=== PATIENT | female | born 1950 | race African-American/Black ===

== ENCOUNTER 2017-02-19 14:50 | Emergency (ER) | payer OTHER, BC ==
[~2017-02-19] VITALS: Ht 157.5 cm; Wt 107.5 kg
[~2017-02-19 14:50] MED LIST: ACYCLOVIR 400400 MG PO; DIOVAN 80 MG TA80 M1 PO; IBUPROFEN 800800 MG PO; LEXAPRO5 MG PO; NORCO 5-325 TA1 EACH PO; PREDNISONE50 MG PO; PROAIR HFA8.5 GM IH; PROMETHAZINE-C120 ML PO; TRAMADOL 50 MG50 MG PO; ZPAK PO
[2017-02-19] MEDS ORDERED: CENTRUM SILVER1 EAC4 PO (14:59)
[2017-02-19] MEDS ORDERED: BREO ELLIPTA 11 EACH IH (14:59)
[2017-02-19] MEDS ORDERED: MEDROLDOSEPACK PO (15:19)
[2017-02-19] MEDS ORDERED: NAPROSYN500 MG PO (15:19)
[2017-02-19] MEDS ORDERED: TIZANIDINE HCL4 MG PO (15:19)
[2017-02-19 16:18] VITALS: BP 120/82
== END 2017-02-19 16:18 | disposition home or self-care (01) ==
LOC: ER 14:50
DX: M54.42 Lumbago with sciatica, left side (principal); I10 Essential (primary) hypertension; F17.210 Nicotine dependence, cigarettes, uncomplicated; Z88.5 Allergy status to narcotic agent

== ENCOUNTER → 2017-03-24 | Outpatient (CLI) | payer OTHER, BC ==
[~2017-03-24] VITALS: Ht 157.5 cm; Wt 108.9 kg
[~2017-03-24] MED LIST changes: +ALVESCO6.1 GM INH; +BELVIQ10 MG PO; +BREO ELLIPTA 11 EACH IH; +CENTRUM SILVER1 EAC4 PO; +LIPITOR10 MG PO; +MEDROLDOSEPACK PO; +NAPROSYN500 MG PO; +NEURONTIN300 MG PO; +OMEPRAZOLE40 MG PO; +TIZANIDINE HCL4 MG PO; +TOPROL XL25 MG PO; +VALTREX1000 MG PO
--- NOTE | ~2017-03-24 | HPC ---
[facility] [place] [address] PAIN MANAGEMENT CONSULTATION Name: YANELY CISNEROSXAVIER Room #: REG [facility] [employer]rett[employer]uca[employer]ai.#: [id number] Admission: 03/24/17 Attend Phys: Suri Cadena MD Discharge: Date of : 46 Report #: [id number] THIS REPORT FOR: //name// CC: SOSA Cadena DATE OF SERVICE: 03/24/2017 FOLLOWUP COMPLAINT: Pain down in my leg with numbness, weakness, tenderness. FOLLOWUP HISTORY: The patient is a 66-year-old female, who has been referred to the pain clinic for evaluation of leg pain. She has noticed the onset of this discomfort in early January. She describes the pain in her right upper leg and radiates down into her right hip. Standing makes it worse. Walking is problematic, sitting is uncomfortable, pain is better if she lies on her left side and takes pain pills. She describes it as continuous, steady, constant, periodic, burning, shooting, sharp and stabbing. She rates it as a 9/10 today. She is almost unable to bear weight and walk. She states that she takes care of her, dependence of mother. She is bearly able to get up and get around to help with her mother's care. She denies any surgeries. ALLERGIES: OXYCODONE, LOSARTAN. MEDICATIONS: Ibuprofen 800 mg 1 p.o. q. 8 hours p.r.n., albuterol sulfate 2 puffs q. 4-6 hours, Diovan 80 mg p.o. daily, multivitamin, fluticasone/vilanterol daily. PAST MEDICAL HISTORY: Hypertension, hyperlipidemia, depression, osteoarthritis, COPD/emphysema, hiatal hernia, history of thyroid nodule. PAST SURGICAL HISTORY: Bladder suspension 1997, total knee replacement right 2007, total knee replacement, left 2004. SOCIAL HISTORY: She is retired, has been retired for 4 years, takes care of her mother, who has Alzheimer's. Spouse at age 59 of cancer. FAMILY HISTORY: Cancer, heart disease, hypertension, thyroid disease, tuberculosis. SOCIAL HISTORY: Smokes cigarettes and is trying to stop. Smokes 1 pack per day for 20 years. Denies use of illicit drugs. Denies use of alcohol on a regular basis. REVIEW OF SYSTEMS: Questionnaire in the chart indicates 14-point review showing generally good health, fatigue, weakness, wears glasses, hearing loss, shortness [address] [address] PAIN MANAGEMENT CONSULTATION Name: XAVIER MOLINA Room #: REG CLI [facility]#: [id number] Admission: 03/24/17 Attend Phys: Suri Cadena MD Discharge: Date of : 46 Report #: [id number] breath, asthma/wheezing, depression, anemia. LABORATORY DATA: No laboratories are available at the time of our interview. PHYSICAL EXAMINATION: Blood pressure 165/85, pulse 87, saturations 100%. The patient walks with a very antalgic gait favoring her right leg. Height 5 feet 2 inches, weight 108 kilograms. BMI is 43. Has straight leg raise positive on the right. Notes decreased sensation to touch in the posterior portion of her right leg with pain radiating down into the calf. Describes as shooting, sharp pain radiating down the posterior portion of her leg in the L5-S1 distribution. IMPRESSION: Lumbar radiculopathy involving the right L5-S1 distribution. RECOMMENDATIONS: We discussed treatment options with the patient. Risks and benefits of an epidural steroid injection were discussed. Possible complications were reviewed. The patient elects to proceed. Risks and benefits of the procedure, which include but are not limited to increased pain, no improvement in pain, bleeding, headache, muscle soreness, nerve damage were explained and the patient elects to proceed. PROCEDURE NOTE: The patient was placed in the prone position. Fluoroscopy was used to identify the right L5-S1 nerve area. This area was sterilely prepped with Betadine. 0.25% bupivacaine was infiltrated. A #17-gauge Tuohy with loss of resistance technique was used to gain access to the epidural space. There was no CSF, heme or paresthesia. A total of 80 mg Depo-Medrol, 40 mg triamcinolone and 3 mL of 0.25% bupivacaine was injected. The patient's pain decreased from 9-0 at the time of discharge. She will follow up in the future. We would like to thank you for letting us participate in her care. We hope she continues to improve. <ELECTRONICALLY SIGNED> By: Suri Cadena MD 04/01/17 0815 0831 1302 Suri Cadena MD /cathy
[2017-03-24 15:35] VITALS: BP 148/103
== END ==
LOC: PAIN 14:13
DX: M54.16 Radiculopathy, lumbar region (principal); F17.210 Nicotine dependence, cigarettes, uncomplicated; I10 Essential (primary) hypertension; E78.5 Hyperlipidemia, unspecified; F32.9 Major depressive disorder, single episode, unspecified; J43.9 Emphysema, unspecified; Z96.653 Presence of artificial knee joint, bilateral; Z80.9 Family history of malignant neoplasm, unspecified

== ENCOUNTER → 2017-04-07 | Outpatient (CLI) | payer OTHER, BC ==
[~2017-04-07] VITALS: Ht 157.5 cm; Wt 107.9 kg
[~2017-04-07] MED LIST changes: +VALSARTAN-HCTZ1 EACH PO; +ZANAFLEX4 MG PO
--- NOTE | ~2017-04-07 | HPC ---
[facility] [place] [address] PAIN MANAGEMENT CONSULTATION Name: YANELY CISNEROSXAVIER Room #: REG [facility] [employer]rett[employer]uca[employer]ai.#: [id number] Admission: 04/07/17 Attend Phys: Suri Cadena MD Discharge: Date of : 46 Report #: [id number] THIS REPORT FOR: //name// CC: Jaycee Cadena DATE OF SERVICE: 04/07/2017 DATE OF SERVICE: 04/07/2017. PRIMARY CARE PHYSICIAN: Jaycee Sharp MD FOLLOWUP COMPLAINT: The pain improved after the injection, but I am still having some pain down the side of my leg, and I did have some in my calf. FOLLOWUP HISTORY: The patient is a 66-year-old female who has been referred to the pain clinic for evaluation of lumbar radicular pain. She underwent an epidural steroid injection at the last visit. She noted improvement. As you recall, she takes care of her invalid mother. She has been getting help now. She has a nursing surgical services director type person who comes in to help with moving her mother and taking care of her. She has had no complications from the procedure. Overall, she feels that things have improved. She has increased her ability to engage in activities of daily living. She does note some pain and discomfort after standing, walking and sometimes with sitting. Notes that her pain improves when she lies on her left side. Pain medications are helpful as well. She is having less of the shooting, sharp, stabbing and constant pain. PHYSICAL EXAMINATION: VITAL SIGNS: Blood pressure is 122/84, pulse 69, respiratory rate 16, and room air saturation is 100%. Height 5 feet 2 inches, weight 107 kg, BMI is 43. NEUROLOGIC: The patient has pain and discomfort radiating down the posterior portion of her right leg in the L5-S1 distribution. IMPRESSION: Lumbar radiculopathy, improved after the last L5-S1 epidural steroid injection by greater than 50%. RECOMMENDATIONS: We discussed treatment options with the patient. Risks and benefits of another epidural steroid injection were again reviewed. Possible complications which could include but are not limited to infection, increased muscle soreness, headaches, paresis, bleeding. PROCEDURE NOTE: The patient was placed in the prone position. The L5-S1 area was sterilely prepped. Then, 0.25% bupivacaine was infiltrated into this area. A 17-gauge Tuohy with loss of resistance technique was used to gain access to the epidural space. There was no CSF, heme or paresthesia. Total of [address] [address] PAIN MANAGEMENT CONSULTATION Name: YANELY CISNEROSXAVIER Room #: REG [facility]#: [id number] Admission: 04/07/17 Attend Phys: Suri Cadena MD Discharge: Date of : 46 Report #: [id number] Depo-Medrol, 40 mg triamcinolone and 2 mL of 0.25% bupivacaine was injected. The patient's pain decreased to 3 at the time of discharge. PLAN: She will follow up in the future if needed. We would like to thank you for letting us participate in her care. We hope she continues to improve. By: 1118 [id number] Suri Cadena MD /nt
[2017-04-07 09:11] VITALS: BP 122/84
== END ==
LOC: PAIN 06:08
DX: M54.16 Radiculopathy, lumbar region (principal); I10 Essential (primary) hypertension; F17.210 Nicotine dependence, cigarettes, uncomplicated; F32.9 Major depressive disorder, single episode, unspecified

== ENCOUNTER → 2017-05-14 | Outpatient (CLI) | payer OTHER, BC ==
[~2017-05-14] VITALS: Ht 157.5 cm; Wt 112.2 kg
[2017-05-14 09:09] VITALS: BP 151/91
== END | disposition home or self-care (01) ==
LOC: PAIN 06:53
DX: M54.16 Radiculopathy, lumbar region (principal)

== ENCOUNTER → 2017-06-15 | Outpatient (CLI) | payer OTHER, BC | LOC: CAT 09:17 | DX: J98.11 Atelectasis (principal); R91.1 Solitary pulmonary nodule ==

== ENCOUNTER 2017-12-09 05:20 | Inpatient (IN) | payer OTHER, BC ==
[~2017-12-09] VITALS: Ht 157.5 cm; Wt 106.1 kg
--- NOTE | ~2017-12-09 | O ---
[facility] [place] [place] [address] OPERATIVE REPORT Name: XAVIER MOLINA Room #: 436-P [facility] IN M.R.#: [id number] Admission: 12/09/17 Attend Phys: Yfn Esposito MD, F Discharge: Date of : 46 Report #: [id number] THIS REPORT FOR: //name// CC: Jaycee Esposito DATE OF SERVICE: 12/09/2017 SURGEON: Yfn Esposito MD ELECTRICIAN: Laureano Patiño MD PREOPERATIVE DIAGNOSES: 1. Morbid obesity. 2. Hypertension. 3. Chronic obstructive pulmonary disease POSTOPERATIVE DIAGNOSES: 1. Morbid obesity. 2. Paraesophageal hernia. 3. Hypertension. 4. Chronic obstructive pulmonary disease. PROCEDURE: 1. Laparoscopic sleeve gastrectomy with EGD. 2. Laparoscopic suture repair of paraesophageal hernia. ANESTHESIA: General endotracheal anesthesia and local anesthetic. ESTIMATED BLOOD LOSS: 5 mL SPECIMEN: Lateral stomach. COMPLICATIONS: None appreciated. INDICATIONS FOR PROCEDURE: This is a 67-year-old female, patient of Dr. Jaycee Sharp who stands 5 feet 2 inches, weighing 239 pounds at her last office visit with a BMI of 43.7. She has had difficulty with her weight since early adulthood. Most of her issues have been secondary to an inability to exercise with chronic knee and lower extremity arthritis/pain. The patient has tried numerous weight loss programs and plans with limited weight loss success, including specialized diets and phentermine. She has numerous weight-associated comorbid conditions and complaints. She has been cleared from a multidisciplinary standpoint for bariatric surgery. She presents today for laparoscopic sleeve gastrectomy with EGD. [facility] [address] [place] [address] OPERATIVE REPORT Name: YANELY CISNEROSXAVIER Room #: 436-P [facility] IN ..#: [id number] Admission: 12/09/17 Attend Phys: Yfn Esposito MD, F Discharge: Date of : 46 Report #: [id number] OPERATIVE FINDINGS: On EGD, the patient had a possible hiatal hernia seen on retroflexion of the scope. The EGD was otherwise normal with the stomach and duodenum showing no polyps, diverticula, masses, or ulcers. Laparoscopically, the patient was seen to have a paraesophageal hernia with a portion of her stomach and omentum extending up into the hiatus. The liver, small bowel and colon in the surrounding area appeared otherwise normal. The gastric sleeve staple line was located 4 cm lateral/proximal to the pylorus, 3 cm lateral to the incisura, and 1 cm lateral to the GE junction after repairing the paraesophageal hernia with a suture. There is no evidence for staple line leak. Immediately after applying Tisseel to the gastric sleeve staple line, the gastroscope was used to gently insufflate air into the sleeve. No air bubbles were seen forming within the Tisseel, indicative of a negative leak test. There was no endoluminal bleeding and the lumen was smooth and contoured. The excised stomach held 750 mL of fluid. No other significant intra-abdominal pathology was seen. At the conclusion of the operation, sponge, needle, and instrument counts were correct. DESCRIPTION OF PROCEDURE IN DETAIL: After the risks, benefits, and expectations of the operation were discussed in detail with the patient, informed consent was obtained. The patient was identified in the preoperative holding area. The patient was given IV antibiotics as documented in the chart [facility]. The patient was then taken to the operating room and she was placed in the supine position. SCDs were placed on the patient's bilateral lower extremities and pneumatic compression was initiated. The patient was then given IV sedation and she was intubated without incident. A bite block and orogastric tube were placed by Anesthesia. The patient was placed in the low lying dorsal lithotomy position in Yellofin stirrups on the beanbag. She was secured to the table. A timeout was performed to identify the correct patient and procedure. EGD was performed first. The gastroscope was inserted into the patient's oropharynx and passed down the esophagus into the stomach and beyond the pylorus to the third portion of the duodenum. The scope was then slowly withdrawn. With the scope withdrawn into the antrum of the stomach, the scope was retroflexed and a retrograde view of the cardia was seen, whereby a possible hiatal hernia was seen. The scope was then straightened and slightly withdrawn. The patient's abdomen was prepped and draped in the standard sterile fashion. Local anesthetic was infiltrated into the skin and subcutaneous tissue in the left periumbilical area where a small transverse incision was made. A 5 mm Visiport was then placed intraperitoneally with a 0-degree angled laparoscope. Pneumoperitoneum was achieved with insufflation of carbon dioxide to 15 mmHg. A 30-degree angled laparoscope was inserted. A 15 mm port was placed in the right mid abdomen under direct visualization after local anesthetic was infiltrated into the skin and subcutaneous tissue and an appropriately sized incision was made. Additional 5 mm ports were placed in the left mid and left lateral [address] [address] OPERATIVE REPORT Name: XAVIER MOLINA Room #: 436-P [facility] IN M.R.#: [id number] Admission: 12/09/17 Attend Phys: Yfn Esposito MD, F Discharge: Date of : 46 Report #: [id number] abdomen using the same technique. Local anesthetic was then infiltrated into the subxiphoid area where a small transverse incision was made and the 5 mm port obturator was used to penetrate the fascia. This created a passageway for the Syeda liver retractor. After placement of the retractor, the hiatal hernia was visualized. The left mid abdominal 5 mm port was then upsized to a 12 mm port after widening the incision. The patient was placed in the reverse Trendelenburg position. The gastrosplenic ligament with short gastric vessels were then divided with the ultrasonic dissector with good hemostasis up to the level of the left saravanan. Dissection was carried out along the left saravanan to further delineate the hiatal hernia. The phreno-esophageal was opened with the ultrasonic dissector as well to fully expose both the left and right saravanan. Dissection was carried into the mediastinum. The omentum and the stomach that were located within the hernia were completely reduced. The EndoStitch device was then used to primarily repair the hiatal hernia with a single suture of 0 Surgidac. There was good approximation of the defect with no impingement upon the esophagus that had been reduced into the abdominal cavity. Dissection continued along the greater curvature of the stomach, dividing the gastrocolic ligament with the ultrasound dissector with good hemostasis. Dissection was carried to an area that was 4 cm proximal to the pylorus. The stomach was then rotated medially and all posterior attachments were carefully taken down with the ultrasonic dissector. The orogastric tube was removed by Anesthesia under my direction. The gastroscope remained within the stomach and was positioned along the lesser curvature of the stomach by Anesthesia under my direction as well. The scope would serve as a 34-Turkish bougie. The gastric sleeve was then created in a distal to proximal fashion using the powered 65 mm SHAYLEE stapler with all loads buttressed with Mariah-Strips. The initial 2 firings, which started at the area 4 cm lateral to the pylorus, were with black loads; the remaining loads were green loads up to the stomach near the GE junction. The stomach was then transected and removed through the 15 mm port site. An 0 PDS suture was placed with the Evan-Chicho laparoscopic fascial closure device. The suture was tagged and the port was replaced. The leak test was performed next. 10 mL of Tisseel was applied to the gastric sleeve staple line with the Playdom aerosolizer. Immediately after applying the Tisseel, the gastroscope was used to gently insufflate air into the sleeve and no air bubbles were seen forming within the Tisseel. The scope was slowly withdrawn. An additional 0 PDS suture was used to close the 12 mm port site fascial opening in the left mid abdomen. This was done so under direct visualization with a Evan-Chicho laparoscopic fascial closure device. The Syeda liver retractor was then removed under direct visualization. The abdominal cavity was desufflated and the remaining ports were removed. Interrupted subcuticular 4-0 Monocryl sutures and Dermabond were used to close the skin incisions. The patient tolerated the procedure well. She was [address] [address] OPERATIVE REPORT Name: [place] XAVIER CISNEROS Room #: 436-P [facility] IN M.R.#: [id number] Admission: 12/09/17 Attend Phys: Yfn Esposito MD, F Discharge: Date of : 46 Report #: [id number] awakened, extubated, and taken to recovery room in stable condition with no apparent intraoperative complications. <ELECTRONICALLY SIGNED> By: Yfn Esposito MD, FACS 12/09/17 1650 1000 1116 Yfn Esposito MD, FACS /nt
--- NOTE | ~2017-12-09 | S ---
[facility] [address] [place] [address] SURGICAL PATH RPT PROCEDURE Name: XAVIER MOLINA Room #: 436-P [facility] IN M.R.#: [id number] Admission: 12/09/17 Date of : 46 Discharge: 12/10/17 Report #: [id number] Path Case #: [id number] PATHOLOGY REPORT COLLECTION DATE: 12/09/2017 RECEIVED DATE: 12/09/2017 SUBMITTING PHYS: Dr. Yfn Esposito OTHER PHYS: Dr. 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 - Negative for intestinal metaplasia or atrophy. (IUV:pit; 12/14/2017) Professional services performed by [facility] at [facility] [address] [place] [address] Technical services performed by [facility] at [address] [place] [address], [address] [place] [address]. ADDENDUM COMMENT: This addendum is issued subsequent to reviewing a well-controlled Helicobacter pylori immunohistochemical stain performed on block A1. It shows numerous organisms present. The originally rendered diagnosis refined as follows: ELECTRONICALLY SIGNED BY: Omaira Whitney M.D. DATE/TIME:12/14/2017 13:36 SPECIMEN(S) RECEIVED: A.Lateral stomach * * * * * * * * * * * * FINAL DIAGNOSIS: Partial sleeve gastrectomy: - Moderate chronic active gastritis. - Negative for intestinal metaplasia or atrophy. COMMENT: A Helicobacter pylori immunohistochemical stain is ordered on block A1 due to the histologic findings. The results of the stain will be reported in an addendum to follow. (IUV:mgr; 12/10/2017) PATHOLOGIST: Omaira Whitney M.D. [address] [address] SURGICAL PATH RPT PROCEDURE Name: XAVIER MOLINA Room #: 436-P [facility] IN M.R.#: [id number] Admission: 12/09/17 Date of : 46 Discharge: 12/10/17 Report #: [id number] Path Case #: [id number] REPORT ELECTRONICALLY SIGNED BY: Omaira Whitney M.D. DATE/TIME: 12/10/2017 12:10 * * * * * * * * * * * * GROSS PATHOLOGY: Received in formalin labeled "Nola Morrow, lateral stomach" is a partial gastrectomy specimen measuring 23.5 x 5.6 x 1.8 cm. The external surface is pink-romero and smooth, and the specimen is closed with a staple line measuring 22.5 cm in length. There is a previously made incision adjacent to the staple line measuring 4.6 cm. The staple line is removed and the specimen is opened to reveal pink romero grossly unremarkable mucosa without polyps or masses. Database Programmer Analyst sections are submitted in cassettes A1-A3. ([facility]; 12/09/2017) CLINICAL HISTORY: Morbid obesity. INITIAL CPT CODE(S): A; 32060, 00394, 75377 Professional services performed by [facility] at [facility] [address], [place] [address] Technical services performed by [facility] at [address] [place] [address], [address], [place] [address]. [facility] [address] [place] [address] PHONE: [phone] DIRECTOR: Yong Vick M.D. * * * END OF REPORT * * *
[~2017-12-09 05:20] MED LIST changes: +VITAMIN D1000 UNI1 PO
[2017-12-09 07:00] VITALS: BP 133/71
[2017-12-09 14:00] VITALS: BP 136/80
[2017-12-09 15:00] VITALS: BP 124/74
[2017-12-09 16:00] VITALS: BP 136/80
[2017-12-09 17:00] VITALS: BP 127/78
[2017-12-09 19:38] VITALS: BP 127/70
[2017-12-10 00:10] VITALS: BP 124/68
[2017-12-10 04:36] VITALS: BP 133/61
[2017-12-10 06:57] LABS: ABSOLUTE NEUTROPHILS 7.6 thou/uL (1.4-8.2); BASOPHILS 0.1 % (0.0-2.0); HEMATOCRIT 31.7 % (37.0-47.0); HEMOGLOBIN 10.5 gm/dL (12.0-15.0); LYMPHOCYTES 18.3 % (24.0-44.0); MCH 31.9 pg (26.0-34.0); MCHC 33.2 g/dL (28.0-37.0); MONOCYTES 7.9 % (1.0-8.0); PLATELET COUNT 209 thou/uL (150-400); POLYS 73.7 % (36.0-66.0); RDW 14.9 % (10.5-14.5); WBC 10.3 thou/uL (4.0-11.0)
[2017-12-10 07:10] LABS: CALCIUM 8.7 mg/dL (8.5-10.1); CREATININE 0.6 mg/dL (0.6-1.0); POTASSIUM 3.2 mmol/L (3.5-5.1)
[2017-12-10] MEDS ORDERED: LOPRESSOR25 PO (10:01)
[2017-12-10] MEDS ORDERED: HYDROCODONE-ACE15 ML PO (10:02)
[2017-12-10 13:49] VITALS: BP 133/61
== END 2017-12-10 14:28 | disposition home or self-care (01) | DRG 621 ==
LOC: EDSTATUS 05:20 → TBA 05:21 → 4S 05:21 → OR 10:45 → 4S 13:50 → ENTRNSPT 12-10 14:19 → EDTRNSPTSTS 12-10 14:23 → 4S 12-10 14:28
PROVIDERS: Surgery
DX: E66.01 Morbid (severe) obesity due to excess calories (principal); K44.9 Diaphragmatic hernia without obstruction or gangrene; J44.9 Chronic obstructive pulmonary disease, unspecified; I10 Essential (primary) hypertension; E78.5 Hyperlipidemia, unspecified; F17.210 Nicotine dependence, cigarettes, uncomplicated; Z96.659 Presence of unspecified artificial knee joint; M19.90 Unspecified osteoarthritis, unspecified site; R06.83 Snoring; Z68.41 Body mass index [BMI] 40.0-44.9, adult; Z88.6 Allergy status to analgesic agent; Z81.8 Family history of other mental and behavioral disorders
CPT/HCPCS: 10102; 50010; 50101; 50222; 50249; 50386; 50555; 50558; 50739; 50740; 50962; 51437; 52182; 52265; 53307; 53311; 54022; 54118; 55326; 56462; 56525; 56526; 57092; 62110; 62900; 70005

== ENCOUNTER 2017-12-22 11:59 | Emergency (ER) | payer OTHER, BC ==
[~2017-12-22] VITALS: Ht 157.5 cm; Wt 105.7 kg
--- NOTE | ~2017-12-22 | EKG ---
[place] [address] [email or web address] [email or web address] [address] ELECTROCARDIOGRAM REPORT Name: XAVIER MOLINA Room #: [facility]#: [id number] Admission: 12/22/17 Attend Phys: Discharge: 12/22/17 Date of : 46 Report #: [id number] THIS REPORT FOR: //name// [facility] ED Test Date: 2017-12-22 Test Time: 12:29:11 Pat Name: XAVIER CISNEROS Department: Room: Gender: F [employer] Hand: NASIM : 1950 Requested By: William Sanchez Order Number: [id number] MD: Aleksander Go Measurements Intervals [place] Rate: 63 P: 42 SD: 194 QRS: 1 QRSD: 97 T: -10 QT: 413 QTc: 423 Interpretive Statements Sinus rhythm Probable left atrial enlargement Anteroseptal infarct, age indeterminate Compared to ECG 05/16/2015 12:53:01 Anterior T wave abnormality is now present Electronically Signed On 12-23-2017 8:23:13 RETAIL SALESPERSON by Aleksander Go [email or web address] <ELECTRONICALLY SIGNED> By: Aleksander Go MD, [facility] 12/23/17 0823 1229 28 Aleksander Go MD, [facility] /EPI
[~2017-12-22 11:59] MED LIST changes: +HYDROCODONE-ACE15 ML PO; +LOPRESSOR25 PO
[2017-12-22 12:59] LABS: ABSOLUTE NEUTROPHILS 5.3 thou/uL (1.4-8.2); BASOPHILS 0.3 % (0.0-2.0); EOSINOPHILS 2.1 % (0.0-3.0); HEMATOCRIT 35.2 % (37.0-47.0); HEMOGLOBIN 11.6 gm/dL (12.0-15.0); LYMPHOCYTES 15.6 % (24.0-44.0); MCH 31.3 pg (26.0-34.0); MCV 94.7 fL (80.0-100.0); MONOCYTES 7.6 % (1.0-8.0); PLATELET COUNT 264 thou/uL (150-400); POLYS 74.4 % (36.0-66.0); RBC 3.71 mil/uL (4.20-5.00); RDW 15.2 % (10.5-14.5); WBC 7.2 thou/uL (4.0-11.0)
[2017-12-22 13:03] LABS: ANION GAP 13 mmol/L (7-16); BUN 6 mg/dL (7-18); CHLORIDE 104 mmol/L (98-107); CO2 23 mmol/L (21-32); CREATININE 0.6 mg/dL (0.6-1.0); GLUCOSE 93 mg/dL (74-106); POTASSIUM 3.1 mmol/L (3.5-5.1)
[2017-12-22 13:04] LABS: SODIUM 140 mmol/L (136-145)
[2017-12-22 13:11] LABS: ALBUMIN 2.8 g/dL (3.4-5.0); LIPASE 119 U/L (73-393); SGOT 22 U/L (15-37); SGPT 24 U/L (30-65); TOTAL BILIRUBIN 0.4 mg/dL (<0.1-1.0); TROPONIN-I < 0.04 ng/mL (<0.06)
[2017-12-22] MEDS ORDERED: ACETAMINOPHEN-1 EAC1 PO (13:55)
[2017-12-22 14:15] VITALS: BP 111/71
== END 2017-12-22 14:15 | disposition home or self-care (01) ==
LOC: ER 11:59
PROVIDERS: Emergency Medicine
DX: E87.6 Hypokalemia (principal); I10 Essential (primary) hypertension; J45.909 Unspecified asthma, uncomplicated; K21.9 Gastro-esophageal reflux disease without esophagitis; F17.210 Nicotine dependence, cigarettes, uncomplicated; Z88.5 Allergy status to narcotic agent; Z90.3 Acquired absence of stomach [part of]

== ENCOUNTER 2018-01-08 14:58 | Inpatient (IN) | payer OTHER, BC ==
[~2018-01-08] VITALS: Ht 152.4 cm; Wt 105.7 kg
--- NOTE | ~2018-01-08 | HC ---
[facility] [place] [address] CONSULTATION Name: YANELY CISNEROSXAVIER Room #: 408-P ADM IN M.R.#: [id number] Admission: 01/08/18 Attend Phys: Joan Dickson Discharge: Date of : 46 Report #: [id number] THIS REPORT FOR: //name// CC: [facility] Chart Joan Dickson GASTROINTESTINAL CONSULT HISTORY OF PRESENT ILLNESS: The patient began having productive cough, weakness and decreased p.o. intake over the course of the last several days. She had a gastric sleeve surgery done approximately 1 month ago. She reports difficulty swallowing more than a couple sips at a time and has had some bronchial complaints after swallowing. She has also incidentally had a CT and ultrasound confirmed a thyroid nodule which is a new diagnosis as well. Her medical history is well outlined in the chart, but includes knee replacements, bladder sling, colonoscopy, hypertension, asthma, gastroesophageal reflux, remote smoking history, gastric sleeve. Denies recreational or chronic drug use. Denies significant alcohol consumption. MEDICATIONS AT HOME: Ellipta, omeprazole, valsartan/hydrochlorothiazide, vitamin D, and Centrum. ALLERGIES: She is allergic to OXYCODONE. FAMILY HISTORY: Noncontributory. REVIEW OF SYSTEMS: Negative for weight loss. She does have weakness and fatigue. She denies head, eyes, ears, nose or throat complaints. Besides that mentioned above, she denies chest pain, chest palpitation, chest pressure, cough, shortness of breath, wheezing, genitourinary, musculoskeletal or neuropsychiatric complaints otherwise. PHYSICAL EXAMINATION: VITAL SIGNS: Afebrile, vital signs stable. HEENT: Nonicteric. NECK: No JVD, thyromegaly or bruits. CARDIOVASCULAR: Regular. LUNGS: Clear anteriorly. ABDOMEN: Soft, nondistended. EXTREMITIES: Deferred. NEUROLOGIC: Deferred. RECTAL: Deferred. LABORATORY DATA: Pertinent labs include white count 8.6, hemoglobin 13.7, platelet count 198. Serum chemistry notable for potassium 3, chloride 114, glucose 182, magnesium 1.7, TSH 0.012. [facility] [address] [place] [address] CONSULTATION Name: XAVIER MOLINA Room #: [facility] IN M.R.#: [id number] Admission: 01/08/18 Attend Phys: Joan Dickson Discharge: Date of : 46 Report #: [id number] IMAGING STUDIES: Reveal chest x-ray with possible right hilar mass. There is some infiltrate or atelectasis also inferiorly over the heart in lateral view. CT chest revealed large left lobe thyroid mass 2.2 x 2.2 cm, pulmonary changes most likely focal atelectasis and infiltrate in the medial right lung and then this enlarged thyroid mass and the thyroid neck ultrasound reveals a complex cystic and solid mass within the left lobe measuring 2.4 x 1.8 x 3.7 cm. Biopsy was suggested. ASSESSMENT AND PLAN: In summary, the patient presents with dysphagia, which may be related to the thyroid mass either from an obstructive standpoint or a neurologic deficit associated with cough from the recurrent laryngeal nerve. We will proceed with a swallow study to exclude proximal or oropharyngeal dysphagia. I also have ordered barium esophagram. At this point, I would treat her pneumonia with antibiotics and workup this thyroid nodule. Perhaps an upper endoscopy would be reasonable at some points, but her symptoms are highly suggestive of a more proximal source. Again, I appreciate the opportunity to participate in her care. <ELECTRONICALLY SIGNED> By: Unruly Sher MD 01/12/18 0919 1416 194 Albert Cadena MD /nt
--- NOTE | ~2018-01-08 | EKG ---
[place] [address] [facility] [place] [address] ELECTROCARDIOGRAM REPORT Name: XAVIER MOLINA Room #: 408-P ADM IN M.R.#: [id number] Admission: 01/08/18 Attend Phys: Joan Dickson Discharge: Date of : 46 Report #: [id number] THIS REPORT FOR: //name// [facility] Test Date: 2018-01-12 Test Time: 15:06:24 Pat Name: XAVIER [place] CISNEROS Department: Room: 408 P Gender: F Lens Dotter: Everett JARAMILLO : 1950 Requested By: Estevan Oscar Order Number: [id number] MD: Aleksander Go Measurements Intervals [place] Rate: 72 P: 44 NV: 183 QRS: 28 QRSD: 88 T: 26 QT: 372 QTc: 408 Interpretive Statements Sinus rhythm Poor septal R-wave progression Compared to ECG 12/22/2017 12:29:11 No significant changes Electronically Signed On 01-12-2018 16:17:55 NEW PATIENT ESCORT by Aleksander Go [email or web address] <ELECTRONICALLY SIGNED> By: Aleksander Go MD, [facility] 01/12/18 1617 1506 1506 Aleksander Go MD, [facility] /EPI
[~2018-01-08 14:58] MED LIST changes: +ACETAMINOPHEN-1 EAC1 PO
[2018-01-08 15:28] LABS: ABSOLUTE NEUTROPHILS 5.9 thou/uL (1.4-8.2); BASOPHILS 0.2 % (0.0-2.0); EOSINOPHILS 0.5 % (0.0-3.0); HEMATOCRIT 41.3 % (37.0-47.0); HEMOGLOBIN 13.7 gm/dL (12.0-15.0); LYMPHOCYTES 21.4 % (24.0-44.0); MCH 31.3 pg (26.0-34.0); MCHC 33.3 g/dL (28.0-37.0); MCV 94.1 fL (80.0-100.0); MONOCYTES 9.4 % (1.0-8.0); PLATELET COUNT 198 thou/uL (150-400); POLYS 68.5 % (36.0-66.0); RBC 4.38 mil/uL (4.20-5.00); RDW 15.6 % (10.5-14.5); WBC 8.6 thou/uL (4.0-11.0)
[2018-01-08 15:32] LABS: CALCIUM 10.1 mg/dL (8.5-10.1); CREATININE 0.8 mg/dL (0.6-1.0)
[2018-01-08 15:34] LABS: POTASSIUM 2.8 mmol/L (3.5-5.1)
[2018-01-08] MEDS ORDERED: POTASSIUM20 PO (15:49)
[2018-01-08] MEDS ORDERED: PROAIR HFA8.5 GM INH ×3 (15:49→16:07)
[2018-01-08] MEDS ORDERED: POTASSIUM20 MEQ/15 PO ×3 (16:05→16:07)
[2018-01-08 17:42] VITALS: BP 142/75
[2018-01-08 18:05] VITALS: BP 142/75
[2018-01-08 18:30] VITALS: BP 137/83
[2018-01-08 21:27] VITALS: BP 136/81
[2018-01-09 00:21] VITALS: BP 135/83
[2018-01-09 05:36] VITALS: BP 141/83
[2018-01-09 09:42] VITALS: BP 148/88
[2018-01-09 11:07] LABS: HEMATOCRIT 36.1 % (37.0-47.0); HEMOGLOBIN 11.9 gm/dL (12.0-15.0); MCV 93.8 fL (80.0-100.0); RBC 3.84 mil/uL (4.20-5.00); RDW 15.7 % (10.5-14.5); WBC 5.7 thou/uL (4.0-11.0)
[2018-01-09 11:17] LABS: CALCIUM 9.4 mg/dL (8.5-10.1); CREATININE 0.7 mg/dL (0.6-1.0); MAGNESIUM 1.7 mg/dL (1.8-2.4)
[2018-01-09 17:17] VITALS: BP 123/68
[2018-01-09 17:56] VITALS: BP 141/77
[2018-01-09 20:00] VITALS: BP 135/64
[2018-01-10] VITALS: BP 131/76
[2018-01-10 01:56] LABS: URINE BILIRUBIN 1+ (Negative); URINE BLOOD 1+ (Negative); URINE COLOR YELLOW; URINE GLUCOSE-RANDOM* NEGATIVE (Negative); URINE KETONES TRACE (Negative); URINE LEUKOCYTES 1+ (Negative); URINE NITRITE POSITIVE (Negative); URINE PROTEIN (DIPSTICK) 1+ (Negative); URINE SPECIFIC GRAVITY >= 1.030 (1.005-1.035)
[2018-01-10 01:58] LABS: URINE CLARITY CLOUDY
[2018-01-10 02:00] LABS: ICTOTEST (BILI CONFIRMATORY) Positive (Negative)
[2018-01-10 02:28] LABS: MUCUS 4-6 Moderate strn/LPF (None Seen); SQUAMOUS 4-10 Moderate /LPF (0-3)
[2018-01-10 02:29] LABS: BACTERIA >30 Many /HPF (None Seen); CRYSTALS None Seen /LPF (None Seen); TRANSITIONAL EPITHEL CELL 0-3 Few /LPF (None Seen); URINE RBC 3-10 Few /HPF (0-2)
[2018-01-10 02:53] LABS: CASTS None Seen /LPF (None Seen)
[2018-01-10 04:00] VITALS: BP 137/76
[2018-01-10 06:34] LABS: HEMOGLOBIN 11.3 gm/dL (12.0-15.0); MCH 31.4 pg (26.0-34.0); MCHC 33.1 g/dL (28.0-37.0); MCV 94.7 fL (80.0-100.0); RBC 3.59 mil/uL (4.20-5.00); RDW 16.1 % (10.5-14.5); WBC 6.1 thou/uL (4.0-11.0)
[2018-01-10 06:46] LABS: CALCIUM 8.9 mg/dL (8.5-10.1); CREATININE 0.7 mg/dL (0.6-1.0); MAGNESIUM 1.6 mg/dL (1.8-2.4); POTASSIUM 3.1 mmol/L (3.5-5.1)
[2018-01-10 07:12] VITALS: BP 138/66
[2018-01-10 17:30] VITALS: BP 134/81
[2018-01-10 20:00] VITALS: BP 128/63
[2018-01-10 20:43] LABS: MAGNESIUM 2.1 mg/dL (1.8-2.4); POTASSIUM 3.3 mmol/L (3.5-5.1)
[2018-01-11] VITALS (7 sets, daily range): BP systolic 128–167; BP diastolic 58–99
[2018-01-11 06:39] LABS: HEMOGLOBIN 11.5 gm/dL (12.0-15.0); MCH 31.5 pg (26.0-34.0); MCHC 32.7 g/dL (28.0-37.0); MCV 96.2 fL (80.0-100.0); RBC 3.64 mil/uL (4.20-5.00); WBC 4.6 thou/uL (4.0-11.0)
[2018-01-11 06:57] LABS: ALBUMIN 2.5 g/dL (3.4-5.0); CALCIUM 8.5 mg/dL (8.5-10.1); CREATININE 0.6 mg/dL (0.6-1.0); POTASSIUM 3.8 mmol/L (3.5-5.1); TOTAL BILIRUBIN 0.2 mg/dL (<0.1-1.0); TOTAL PROTEIN 5.9 g/dL (6.4-8.2)
[2018-01-12 04:00] VITALS: BP 132/72
[2018-01-12 05:34] LABS: HEMOGLOBIN 11.1 gm/dL (12.0-15.0)
[2018-01-12 05:36] LABS: HEMATOCRIT 33.8 % (37.0-47.0); MCH 31.2 pg (26.0-34.0); MCHC 32.8 g/dL (28.0-37.0); MCV 95.3 fL (80.0-100.0); RBC 3.55 mil/uL (4.20-5.00); RDW 16.1 % (10.5-14.5); WBC 12.3 thou/uL (4.0-11.0)
[2018-01-12 05:49] LABS: CALCIUM 8.7 mg/dL (8.5-10.1); CREATININE 0.6 mg/dL (0.6-1.0); MAGNESIUM 1.8 mg/dL (1.8-2.4); POTASSIUM 4.3 mmol/L (3.5-5.1)
[2018-01-12 07:30] VITALS: BP 142/72
[2018-01-12 08:37] LABS: ABSOLUTE NEUTROPHILS 8.1 thou/uL (1.4-8.2)
[2018-01-12 08:38] LABS: ANISOCYTOSIS 1+; PLATELET COUNT 143 thou/uL (150-400); PLATELET ESTIMATE NORMAL
[2018-01-12 12:22] VITALS: BP 141/76
[2018-01-12 15:23] VITALS: BP 137/66
[2018-01-12 20:00] VITALS: BP 133/73
[2018-01-13 04:00] VITALS: BP 113/58
[2018-01-13 05:53] LABS: ABSOLUTE NEUTROPHILS 2.9 thou/uL (1.4-8.2); BASOPHILS 0.2 % (0.0-2.0); EOSINOPHILS 1.5 % (0.0-3.0); HEMATOCRIT 34.7 % (37.0-47.0); HEMOGLOBIN 11.7 gm/dL (12.0-15.0); LYMPHOCYTES 28.7 % (24.0-44.0); MCH 32.1 pg (26.0-34.0); MCHC 33.7 g/dL (28.0-37.0); MCV 95.1 fL (80.0-100.0); MONOCYTES 10.7 % (1.0-8.0); PLATELET COUNT 133 thou/uL (150-400); POLYS 58.9 % (36.0-66.0); RBC 3.65 mil/uL (4.20-5.00); RDW 15.9 % (10.5-14.5); WBC 4.9 thou/uL (4.0-11.0)
[2018-01-13 06:34] LABS: CALCIUM 9.1 mg/dL (8.5-10.1); CREATININE 0.7 mg/dL (0.6-1.0); POTASSIUM 4.9 mmol/L (3.5-5.1)
[2018-01-13 07:31] VITALS: BP 128/69
[2018-01-13 16:03] VITALS: BP 134/81
[2018-01-13 20:00] VITALS: BP 129/60
[2018-01-14 04:00] VITALS: BP 140/62
[2018-01-14 05:55] LABS: ABSOLUTE NEUTROPHILS 3.4 thou/uL (1.4-8.2); BASOPHILS 0.1 % (0.0-2.0); EOSINOPHILS 1.5 % (0.0-3.0); HEMATOCRIT 33.8 % (37.0-47.0); HEMOGLOBIN 11.4 gm/dL (12.0-15.0); LYMPHOCYTES 20.5 % (24.0-44.0); MCH 31.7 pg (26.0-34.0); MCHC 33.7 g/dL (28.0-37.0); MONOCYTES 11.7 % (1.0-8.0); PLATELET COUNT 156 thou/uL (150-400); POLYS 66.2 % (36.0-66.0); RDW 15.9 % (10.5-14.5); WBC 5.1 thou/uL (4.0-11.0)
[2018-01-14 06:01] LABS: CALCIUM 9.1 mg/dL (8.5-10.1); CREATININE 0.6 mg/dL (0.6-1.0); POTASSIUM 4.2 mmol/L (3.5-5.1)
[2018-01-14 07:06] VITALS: BP 134/72
[2018-01-14 10:57] LABS: MAGNESIUM 1.7 mg/dL (1.8-2.4)
[2018-01-14 16:40] VITALS: BP 131/64
[2018-01-14 19:43] VITALS: BP 121/55
[2018-01-15 04:00] VITALS: BP 119/52
[2018-01-15 04:30] LABS: HEMATOCRIT 33.5 % (37.0-47.0); HEMOGLOBIN 11.3 gm/dL (12.0-15.0); MCH 31.6 pg (26.0-34.0); MCHC 33.9 g/dL (28.0-37.0); MCV 93.4 fL (80.0-100.0); PLATELET COUNT 146 thou/uL (150-400); RBC 3.58 mil/uL (4.20-5.00); RDW 16.1 % (10.5-14.5); WBC 5.9 thou/uL (4.0-11.0)
[2018-01-15 04:32] LABS: CALCIUM 8.9 mg/dL (8.5-10.1); CREATININE 0.7 mg/dL (0.6-1.0)
[2018-01-15 07:00] VITALS: BP 132/61
[2018-01-15 07:27] LABS: ABSOLUTE NEUTROPHILS 4.3 thou/uL (1.4-8.2); ANISOCYTOSIS 1+
[2018-01-15] MEDS ORDERED: REGLAN 10 MG TA10 MG PO (11:24)
[2018-01-15] MEDS ORDERED: MAG6464 MG PO (11:24)
[2018-01-15] MEDS ORDERED: VENTOLIN HFA 1818 GM INH (11:24)
[2018-01-15] MEDS ORDERED: ZOFRAN ODT4 MG DISSOLVE (11:24)
[2018-01-15] MEDS ORDERED: ACETAMINOPHEN325 M1 PO (11:24)
[2018-01-15] MEDS ORDERED: LEXAPRO 10 MG T10 M1 PO (11:24)
[2018-01-15 15:28] VITALS: BP 119/74
[2018-01-15 15:32] VITALS: BP 132/61
== END 2018-01-15 18:07 | disposition home health service (06) | DRG 193 ==
LOC: ER 14:58 → EROBS 16:34 → 4N 16:48
PROVIDERS: Emergency Medicine; Hospitalist; Internal Medicine
DX: J18.9 Pneumonia, unspecified organism (principal); E43 Unspecified severe protein-calorie malnutrition; E87.0 Hyperosmolality and hypernatremia; Z68.41 Body mass index [BMI] 40.0-44.9, adult; Z96.653 Presence of artificial knee joint, bilateral; I10 Essential (primary) hypertension; K21.9 Gastro-esophageal reflux disease without esophagitis; E87.6 Hypokalemia; J45.909 Unspecified asthma, uncomplicated; E07.9 Disorder of thyroid, unspecified; F32.9 Major depressive disorder, single episode, unspecified; E86.0 Dehydration; Z98.84 Bariatric surgery status; Z79.899 Other long term (current) drug therapy; Z88.6 Allergy status to analgesic agent
CPT/HCPCS: 10790

== ENCOUNTER → 2018-01-20 | Outpatient (CLI) | payer OTHER, BC ==
[~2018-01-20] MED LIST changes: +ACETAMINOPHEN325 M1 PO; +KEFLEX500 M1 PO; +LEXAPRO 10 MG T10 M1 PO; +MAG6464 MG PO; +NYSTATIN100000 UNI SWISH&SPIT; +POTASSIUM20 MEQ/15 PO; +POTASSIUM20 PO; +PROAIR HFA8.5 GM INH; +REGLAN 10 MG TA10 MG PO; +VENTOLIN HFA 1818 GM INH; +ZOFRAN ODT4 MG DISSOLVE
--- NOTE | ~2018-01-20 | CNG ---
[facility] [place] [address] CYTO-NONGYN REPORT PROCEDURE Name: YANELY CISNEROSXAVIER Room #: [facility]#: [id number] Admission: 01/20/18 Date of : 46 Discharge: Report #: [id number] Path Case #: [id number] CYTOPATHOLOGY REPORT COLLECTION DATE: 01/20/2018 RECEIVED DATE: 01/20/2018 SUBMITTING PHYS: Dr. Sharad Humphreys OTHER PHYS: Dr. Jaycee Sharp CLINICAL HISTORY: Left thyroid mid pole 2.4 cm nodule. SPECIMEN(S) RECEIVED: A.US guided Fine needle aspiration, Left thyroid mid pole * * * * * * * * * * * * FINAL DIAGNOSIS: Thyroid, left thyroid mid pole, ultrasound -guided fine needle aspiration: - BETHESDA CATEGORY III. ATYPIA OF UNDETERMINED SIGNIFICANCE. (PLEASE SEE COMMENT) COMMENT: Examination shows scattered rare foci of dense colloid, follicular cells in macrofollicles and microfollicles. Focal nuclear enlargement as well as Hurthle cell change is present. Definitive nuclear features of papillary thyroid carcinoma are not identified. Rare groups of cell show irregular nuclei as well. The differential diagnosis includes a mixed macro-microfollicular adenoma, Hurthle cell adenoma, amongst other lesions. The nature of this sample precludes evaluation for carcinoma. Please note sample represents a minute portion of a larger lesion and may not be agency service representative. RNA Retain vial is present and may be sent for additional studies if requested/required. Co-review: Dr. Kirera Funk (IUV:mgr; 01/21/2018) PATHOLOGIST: Omaira Whitney M.D. REPORT ELECTRONICALLY SIGNED BY: Omaira Whitney M.D. DATE/TIME: 01/21/2018 14:24 * * * * * * * * * * * * GROSS PATHOLOGY: US guided Fine needle aspiration, Left thyroid mid pole: The specimen is labeled "Xavier Gutierres" and consists of three fixed slides, three air dried slides. Twenty-five mL of red fluid in fixative from the needle rinse is also submitted and one ThinPrep slide and an alcohol fixed cell block were prepared from this material. Also received is the RNARetain vial which will be held for [facility] [address] [place] [address] CYTO-NONGYN REPORT PROCEDURE Name: XAVIER GUTIERRES Room #: [facility].#: [id number] Admission: 01/20/18 Date of : 46 Discharge: Report #: [id number] Path Case #: [id number] molecular studies if needed. (clt 01.20.2018) ADJUNCT POLITICAL SCIENCE INSTRUCTOR(S): TITI Trinidad[facility] INITIAL CPT CODE(S): A; 22764, 18077 Professional services performed by [facility] at [facility] [address] [place] [address] Technical services performed by [facility] at [address] [place] [address], [address], [place] [address]. PROCEDURE REPORT (Order Date: 01/29/2018 00:00) COMMENT: Please see next page for scanned image of report submitted by [facility] furniture sales consultant pathologist, Carley Ocasio MD. (IUV:amj; d/t: 02/09/2018) PATHOLOGIST: Omaira Whitney M.D. REPORT ELECTRONICALLY SIGNED BY: Omaira Whitney M.D. DATE/TIME: 02/09/2018 16:24 [facility] [address] [facility], [place] [address] PHONE: [phone] DIRECTOR: Yong Vick M.D. * * * END OF REPORT * * *
== END | disposition home or self-care (01) ==
LOC: ULTRA 09:58
DX: E04.1 Nontoxic single thyroid nodule (principal)

== ENCOUNTER 2018-01-21 19:47 | Inpatient (IN) | payer OTHER, BC ==
[~2018-01-21] VITALS: Ht 157.5 cm; Wt 105.7 kg
--- NOTE | ~2018-01-21 | S ---
[facility] [place] [address] SURGICAL PATH RPT PROCEDURE Name: XAVIER MOLINA Room #: 410-P ADM IN M.R.#: [id number] Admission: 01/22/18 Date of : 46 Discharge: Report #: [id number] Path Case #: [id number] PATHOLOGY REPORT COLLECTION DATE: 01/24/2018 RECEIVED DATE: 01/24/2018 SUBMITTING PHYS: Dr. Unruly Sher OTHER PHYS: Dr. Wyatt Sharp SPECIMEN(S) RECEIVED: A.Gastritis B.Distal esophagus * * * * * * * * * * * * FINAL DIAGNOSIS: A. "Gastritis", biopsy: - Gastric antral-type mucosa with mild chronic active gastritis, mild activity. - H. pylori organisms PRESENT in small to moderate numbers by immunohistochemical stain (block A1); control reacted appropriately. B. "Distal esophagus", biopsy: - Scant esophageal squamous mucosa and predominantly gastric cardia type mucosa with reactive changes and mild acute and chronic inflammation; no intestinal metaplasia or dysplasia seen. (CLW:gilda; 01/25/2018) PATHOLOGIST: Kierra Funk M.D. REPORT ELECTRONICALLY SIGNED BY: Kierra Funk M.D. DATE/TIME: 01/25/2018 17:55 * * * * * * * * * * * * GROSS PATHOLOGY: A. Received in formalin labeled "Xavier Morrow, DX of gastritis," are 3 segments of romero soft tissue measuring 1.1 x 0.6 x 0.2 cm in aggregate dimensions and ranging from 0.4 to 0.5 cm in maximum dimension. The specimen is submitted entirely in cassette A1. B. Received in formalin labeled "Xavier Morrow, BX of distal esophagus, rule out Delgado's," are 2 segments of romero soft tissue measuring 0.6 x 0.2 x 0.2 cm in aggregate dimensions and measuring 0.3 cm each in maximum dimension. The specimen is submitted entirely in cassette B1. (TSD; 01/24/2018) CLINICAL HISTORY: [address] [address] SURGICAL PATH RPT PROCEDURE Name: XAVIER MOLINA Room #: 410-P ADM IN M.R.#: [id number] Admission: 01/22/18 Date of : 46 Discharge: Report #: [id number] Path Case #: [id number] Pre-OP DX: Nausea with vomiting, dysphagia Post-OP DX: Gastritis, dysphagia INITIAL CPT CODE(S): A; 38777, 25044 B; 81457 Professional services performed by [facility] at [address] , [place] [address] Technical services performed by [facility] at [address] [place] [address], [facility] [place] [address], [place] [address]. [facility] [address] [address] PHONE: [phone] DIRECTOR: Yong W. Nava, M.D. * * * END OF REPORT * * *
--- NOTE | ~2018-01-21 | HC ---
[facility] [place] [address] CONSULTATION Name: [place] XAVIER CISNEROS Room #: 410-P [facility] IN M.R.#: [id number] Admission: 01/22/18 Attend Phys: Wyatt East MD Discharge: Date of : 46 Report #: [id number] THIS REPORT FOR: //name// CC: Jaycee Esposito MD REASON FOR CONSULTATION: The patient is a 67-year-old woman with a recent gastric sleeve surgery for obesity with difficulty with swallowing as well as nausea. HISTORY OF PRESENT ILLNESS: This patient underwent a gastric sleeve surgery by Dr. Esposito on 12/09/2017. She notes that following surgery, she had difficulty swallowing. She is not very precise on details and from what I gather, she had some problems immediately after surgery, may not necessarily be unexpected. However, symptoms have persisted. She was admitted to [facility] on 01/08/2018 and had an upper GI series, which showed change of the gastric sleeve, but no other abnormalities. There was also concern about aspiration pneumonia at that time, upper endoscopy was discussed but not done because of the abnormal chest x-ray and tentative plans were made to have it done following the discharge. After discharge, she reports that she did not think that she was any better. Her symptoms persisted and she had no improvement. She reports she has difficulty with both solids and liquids. She says she has trouble swallowing, but it sounds as if she is able to swallow, but momentarily after swallowing, she will bring it back up. This occurs with both solids and liquids. She also complains of lots of nausea. She has not had any hematemesis. She did have a swallowing study. There was no evidence of penetration or aspiration. Speech pathologist reported that she had functional pharyngeal swallow once the bolus passed the oral cavity. They reported that she seemed to hold the bolus and in their words "in anticipation of difficulty." Upon swallowing barium tablet, she started gagging and expelled it. There was no evidence of laryngeal penetration or aspiration. It was also noted she does have a thyroid mass. They commented that the thyroid mass did not appear to impact swallowing, reflux was not observed. Etiology of the symptoms was not identified. Mechanical soft diet, I would recommend it. The patient reports that she believes she has lost weight since the gastric sleeve, but did not give the number. PAST MEDICAL HISTORY: She has been treated for depression, high blood pressure, asthma, obesity, reflux is mentioned in the old records, but she denies those symptoms. PAST SURGICAL HISTORY: Gastric sleeve surgery on 12/09/2017, also had paraesophageal hernia repair at the same time. She has had right breast biopsy for benign lesion, bladder sling surgery and bilateral total knee surgeries. [address] [address] CONSULTATION Name: [place] XAVIER CISNEROS Room #: 410-P [facility] IN M.R.#: [id number] Admission: 01/22/18 Attend Phys: Wyatt East MD Discharge: Date of : 46 Report #: [id number] ALLERGIES: SHE REPORTS OXYCODONE. MEDICATIONS: Usual medicines, acetaminophen 650 mg every 4 hours as needed, Ventolin 1 puff 4 hours as needed for shortness of breath, vitamin D, Lexapro 20 mg daily, Ellipta as needed, magnesium 620 mg 3 times daily, metoclopramide 10 mg a.c. and at bedtime, metoprolol 25 mg twice daily, multivitamin, omeprazole 1 daily, ondansetron 4 mg daily. FAMILY HISTORY: No family of colon cancer or ulcer disease. SOCIAL HISTORY: Single, has one child. She is a former smoker and quit less than a year ago. She does drink alcohol on occasion. REVIEW OF SYSTEMS: GENERAL: She has lost weight following her surgery, no fever or chills. CENTRAL NERVOUS SYSTEM: No focal weakness, numbness, loss of conscious, seizures or strokes. HEENT: No change in vision, hearing or sores in her mouth. PULMONARY: History of asthma at last admission, which resolved. She is a former cigarette smoker. CARDIOVASCULAR: No chest pain, chest tightness or palpitations. GASTROINTESTINAL: Recent nausea and vomiting. No history of ulcer disease. Generally does not have constipation, but has not had regular stools and she reports she is not eating much. GENITOURINARY: Without dysuria, pyuria, kidney stones, or kidney tract infection. GYNECOLOGIC: Benign breast biopsy. No vaginal bleeding or discharges. MUSCULOSKELETAL: Arthritis with knee replacements. SKIN: Without rashes. PSYCHIATRIC: Treated for depression/anxiety. ENDOCRINE: Thyroid mass with recent biopsy. No known diabetes, hyperthyroidism or hypothyroidism. HEMATOLOGIC: No bleeding, bruising or malignancies. PHYSICAL EXAMINATION: GENERAL: The patient is a well-developed, well-nourished, obese woman, in no acute distress. She is holding an emesis bag in front of her. She keeps spitting out white frothy material. She does not vomit, but keeps spitting up white frothy material. VITAL SIGNS: Blood pressure 124/67, heart rate 64. HEENT: Anicteric. Pupils equal and round. Oropharynx is clear. NECK: Supple. CHEST: Clear. HEART: Regular rate and rhythm, normal S1 and S2. ABDOMEN: Obese, normal bowel sounds, soft, nontender, without [facility] [address] [place] [address] CONSULTATION Name: YANELY CISNEROSXAVIER Room #: 410-P ADM IN M.R.#: [id number] Admission: 01/22/18 Attend Phys: Wyatt East MD Discharge: Date of : 46 Report #: [id number] hepatosplenomegaly or masses. RECTAL: Not done. EXTREMITIES: Without cyanosis, clubbing, edema. NEUROLOGIC: Oriented to person, place, and time. Moves all 4 extremities well. LABORATORY DATA: White count of 7.9, hemoglobin 12.6, platelet count of 201,000. Sodium 148, potassium 3.5, carbon dioxide 22, BUN 9, creatinine 0.7. Albumin of 3.3, lipase 57, B12 of 1896. Free T4 of 1.4. ASSESSMENT AND PLAN: 1. Reported dysphagia, not confirmed by speech pathologists over previous barium studies. 2. Nausea and vomiting. 3. Morbid obesity, status post gastric sleeve surgery about 6 weeks ago. 4. Thyroid mass. COMMENT: Etiology of symptoms is not entirely clear. It is not clear whether her symptoms are related to organic etiology or functional. RECOMMENDATIONS: 1. Continue supportive care. 2. Medications for nausea. 3. Upper endoscopy, we will tentatively plan for Wednesday. 4. Consider use of transdermal scopolamine patch. <ELECTRONICALLY SIGNED> By: Jl Laura MD 01/23/18 1408 1220 1409 Jl Laura MD /cathy
--- NOTE | ~2018-01-21 | P ---
[facility] [place] [address] PROCEDURE REPORT Name: YANELY CISNEROSXAVIER Room #: 410-P [facility] IN M.R.#: [id number] Admission: 01/22/18 Attend Phys: Joan Dickson Discharge: 01/26/18 Date of : 46 Report #: [id number] THIS REPORT FOR: //name// CC: Jaycee Esposito MD DATE OF SERVICE: 01/24/2018 PROCEDURE PERFORMED: Upper endoscopy with biopsies and esophageal dilation. HISTORY OF PRESENT ILLNESS: The patient is a 67-year-old female who underwent a gastric sleeve surgery approximately 6 weeks ago, has recurrent dysphagia, nausea, vomiting. Previous upper GI was normal. Plan is for upper endoscopy. DESCRIPTION OF PROCEDURE: The risks and benefits of the procedure were explained to the patient, those risks including but not limited to bleeding, perforation, the risk of sedation. She understood these risks and gave informed consent. Sedation was given using propofol per Anesthesia. Next, using a standard Olympus upper endoscope, the scope was placed in the patient's mouth and advanced under direct vision through the esophagus, stomach and into the second portion of the duodenum. There was mild narrowing in the upper esophagus, otherwise normal. Mid esophagus was normal. 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 Biopsies obtained. Changes consistent with gastric sleeve surgery were noted in the stomach. This was patent. I was able to pass the scope through this area without difficulty. There was a mild gastritis. Biopsies were obtained to rule out H. pylori. The pylorus was normal and patent. The duodenal bulb, first and second portion were all normal. The scope was then brought back up into the patient's stomach and a Savary guidewire was inserted through the scope, leaving the guidewire in place as the scope was then withdrawn. Next, a 48-Bulgarian Savary dilation of the esophagus was then performed without difficulty. The wire and dilator removed. The scope was reintroduced into the patient's stomach. There was a small mucosal tear in the proximal esophagus, no evidence of bleeding, otherwise negative. The scope was then withdrawn and the procedure terminated. The patient tolerated the procedure well. IMPRESSION: 1. Mild narrowing upper esophagus, status post dilation. 2. 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 3. Surgical changes consistent with recent gastric sleeve surgery. This was patent. 4. Mild gastritis. Biopsies obtained. [address] [address] PROCEDURE REPORT Name: XAVIER MOLINA Room #: 410-P [facility] IN M.R.#: [id number] Admission: 01/22/18 Attend Phys: Joan Dickson Discharge: 01/26/18 Date of : 46 Report #: [id number] RECOMMENDATIONS: 1. Observe the patient post-dilation. 2. We will start on clear liquid diet and advance as tolerated. 3. Await biopsy results. Thank you for allowing me to participate in her care. <ELECTRONICALLY SIGNED> By: Unruly Sher MD 02/04/18 0804 1525 1606 Unruly Sher MD /nt
[~2018-01-21 19:47] MED LIST changes: -KEFLEX500 M1 PO; -NYSTATIN100000 UNI SWISH&SPIT
[2018-01-21 20:12] VITALS: BP 154/91
[2018-01-21 21:40] LABS: ABSOLUTE NEUTROPHILS 7.1 thou/uL (1.4-8.2); BASOPHILS 0.3 % (0.0-2.0); EOSINOPHILS 0.1 % (0.0-3.0); HEMATOCRIT 45.7 % (37.0-47.0); HEMOGLOBIN 15.3 gm/dL (12.0-15.0); LYMPHOCYTES 11.1 % (24.0-44.0); MCH 31.7 pg (26.0-34.0); MCHC 33.4 g/dL (28.0-37.0); MCV 94.8 fL (80.0-100.0); MONOCYTES 8.1 % (1.0-8.0); PLATELET COUNT 203 thou/uL (150-400); POLYS 80.4 % (36.0-66.0); RBC 4.82 mil/uL (4.20-5.00); RDW 16.5 % (10.5-14.5); WBC 8.8 thou/uL (4.0-11.0)
[2018-01-21 22:00] LABS: ALBUMIN 3.3 g/dL (3.4-5.0); CALCIUM 10.3 mg/dL (8.5-10.1); CREATININE 0.8 mg/dL (0.6-1.0); DIRECT BILIRUBIN 0.2 mg/dL (<0.1-0.3); POTASSIUM 3.4 mmol/L (3.5-5.1); TOTAL BILIRUBIN 0.6 mg/dL (<0.1-1.0); TOTAL PROTEIN 8.1 g/dL (6.4-8.2)
[2018-01-21 22:43] VITALS: BP 117/63
[2018-01-21 23:36] LABS: URINE BILIRUBIN 2+ (Negative); URINE BLOOD TRACE (Negative); URINE CLARITY SL CLOUDY; URINE GLUCOSE-RANDOM* NEGATIVE (Negative); URINE KETONES 3+ (Negative); URINE LEUKOCYTES-REFLEX NEGATIVE (Negative); URINE NITRITE-REFLEX NEGATIVE (Negative); URINE PROTEIN (DIPSTICK) 1+ (Negative); URINE SPECIFIC GRAVITY >= 1.030 (1.005-1.035); URINE UROBILINOGEN 0.2 E.U./dl (0.2-1.0)
[2018-01-21 23:42] LABS: ICTOTEST (BILI CONFIRMATORY) Positive (Negative); URINE COLOR DARK YELLOW; URINE REDUCING SUBSTANCE NEGATIVE
[2018-01-21 23:48] LABS: SQUAMOUS >10 Many /LPF (0-3)
[2018-01-21 23:49] LABS: CRYSTALS None Seen /LPF (None Seen); HYALINE CASTS 0-3 Few /LPF (None Seen); MUCUS >6 Heavy strn/LPF (None Seen); YEAST-REFLEX Present (None Seen)
[2018-01-21 23:50] LABS: URINE RBC 0-2 Rare /HPF (0-2); URINE WBC-REFLEX 0-5 Rare /HPF (0-5)
[2018-01-22 01:52] VITALS: BP 132/72
[2018-01-22 02:35] VITALS: BP 128/56
[2018-01-22 04:58] VITALS: BP 142/69
[2018-01-22 06:44] LABS: MCH 31.3 pg (26.0-34.0); MCHC 33.2 g/dL (28.0-37.0); MCV 94.4 fL (80.0-100.0); RBC 4.03 mil/uL (4.20-5.00); RDW 16.7 % (10.5-14.5); WBC 7.9 thou/uL (4.0-11.0)
[2018-01-22 06:47] LABS: HEMOGLOBIN 12.6 gm/dL (12.0-15.0)
[2018-01-22 07:01] LABS: CALCIUM 9.7 mg/dL (8.5-10.1); CREATININE 0.7 mg/dL (0.6-1.0); POTASSIUM 3.5 mmol/L (3.5-5.1)
[2018-01-22 07:38] LABS: TSH 0.015 uIU/mL (0.358-3.740)
[2018-01-22 09:34] VITALS: BP 124/67
[2018-01-22 16:27] VITALS: BP 123/60
[2018-01-22 19:58] VITALS: BP 117/58
[2018-01-23 04:00] VITALS: BP 134/78
[2018-01-23 08:20] VITALS: BP 106/55
[2018-01-23 17:20] VITALS: BP 133/69
[2018-01-23 20:13] VITALS: BP 136/64
[2018-01-24 03:56] VITALS: BP 136/60
[2018-01-24 06:14] LABS: ALBUMIN 2.2 g/dL (3.4-5.0); CALCIUM 8.7 mg/dL (8.5-10.1); CREATININE 0.7 mg/dL (0.6-1.0)
[2018-01-24 06:17] LABS: POTASSIUM 2.6 mmol/L (3.5-5.1)
[2018-01-24 08:42] VITALS: BP 152/78
[2018-01-24 14:12] LABS: INR 1.1; PROTIME 11.7 Seconds (9.3-11.4)
[2018-01-24 18:19] VITALS: BP 151/78
[2018-01-24 20:40] VITALS: BP 148/81
[2018-01-25 05:22] VITALS: BP 141/81
[2018-01-25 06:11] LABS: ALBUMIN 2.4 g/dL (3.4-5.0); CREATININE 0.6 mg/dL (0.6-1.0); PHOSPHORUS 3.1 mg/dL (2.5-4.9)
[2018-01-25 06:21] LABS: POTASSIUM 2.8 mmol/L (3.5-5.1)
[2018-01-25 07:24] VITALS: BP 143/64
[2018-01-25] MEDS ORDERED: NYSTATIN100000 UNI SWISH&SPIT (10:09)
[2018-01-25 15:28] VITALS: BP 155/57; BP 156/90
[2018-01-25 18:22] VITALS: BP 156/90
[2018-01-25 20:46] VITALS: BP 140/76
[2018-01-26 04:00] VITALS: BP 137/79
[2018-01-26 07:52] VITALS: BP 153/80
[2018-01-26] MEDS ORDERED: REGLAN 10 MG TA10 MG PO (10:14)
[2018-01-26 14:35] VITALS: BP 156/90
[2018-01-26 16:10] VITALS: BP 151/78
[2018-01-26 17:47] VITALS: BP 156/90
== END 2018-01-26 18:44 | disposition home or self-care (01) | DRG 391 ==
LOC: ER 19:47 → 4N 01-22 00:36 → EROBS 01-22 00:36 → 4N 01-22 01:52 → ENTRNSPT 01-26 18:15 → 4N 01-26 18:44
PROVIDERS: Emergency Medicine; Hospitalist; Nurse Practitioner Family
PROC: 0D758ZZ Dilation of Esophagus, Via Natural or Artificial Opening Endoscopic (ICD-10-PCS; principal; 2018-01-24)
PROC: 0DB58ZX Excision of Esophagus, Via Natural or Artificial Opening Endoscopic, Diagnostic (ICD-10-PCS; principal; 2018-01-24)
PROC: 0DB68ZX Excision of Stomach, Via Natural or Artificial Opening Endoscopic, Diagnostic (ICD-10-PCS; principal; 2018-01-24)
DX: K22.2 Esophageal obstruction (principal); E43 Unspecified severe protein-calorie malnutrition; E87.0 Hyperosmolality and hypernatremia; Z68.41 Body mass index [BMI] 40.0-44.9, adult; B96.81 Helicobacter pylori [H. pylori] as the cause of diseases classified elsewhere; B37.9 Candidiasis, unspecified; E86.0 Dehydration; E07.9 Disorder of thyroid, unspecified; I10 Essential (primary) hypertension; E66.01 Morbid (severe) obesity due to excess calories; J44.9 Chronic obstructive pulmonary disease, unspecified; E86.1 Hypovolemia; F32.9 Major depressive disorder, single episode, unspecified; E87.6 Hypokalemia; Z96.653 Presence of artificial knee joint, bilateral; K21.9 Gastro-esophageal reflux disease without esophagitis; Z87.891 Personal history of nicotine dependence; Z98.84 Bariatric surgery status; Z79.51 Long term (current) use of inhaled steroids; Z79.899 Other long term (current) drug therapy; Z88.8 Allergy status to other drugs, medicaments and biological substances
CPT/HCPCS: 10091; 62110; 62900; 70005

== ENCOUNTER 2018-03-16 21:33 | Emergency (ER) | payer OTHER, BC ==
[~2018-03-16] VITALS: Ht 157.5 cm; Wt 94.8 kg
[~2018-03-16 21:33] MED LIST changes: +NYSTATIN100000 UNI SWISH&SPIT
[2018-03-16 22:30] LABS: URINE BLOOD 3+ (Negative); URINE CLARITY SL CLOUDY; URINE COLOR YELLOW; URINE GLUCOSE-RANDOM* NEGATIVE (Negative); URINE KETONES TRACE (Negative); URINE LEUKOCYTES 2+ (Negative); URINE NITRITE NEGATIVE (Negative); URINE PROTEIN (DIPSTICK) 3+ (Negative); URINE SPECIFIC GRAVITY >= 1.030 (1.005-1.035); URINE UROBILINOGEN 0.2 E.U./dl (0.2-1.0)
[2018-03-16 22:32] LABS: ICTOTEST (BILI CONFIRMATORY) Negative (Negative); URINE BILIRUBIN NEGATIVE (Negative)
[2018-03-16 22:37] LABS: BACTERIA 1-9 Few /HPF (None Seen); CASTS None Seen /LPF (None Seen); CRYSTALS None Seen /LPF (None Seen); SQUAMOUS None Seen /LPF (0-3); URINE RBC 3-10 Few /HPF (0-2); URINE WBC >25 Many /HPF (0-5)
[2018-03-16] MEDS ORDERED: KEFLEX500 M1 PO (22:41)
== END 2018-03-16 23:35 | disposition home or self-care (01) ==
LOC: ER 21:33
PROVIDERS: Emergency Medicine
DX: N39.0 Urinary tract infection, site not specified (principal); I10 Essential (primary) hypertension; J44.9 Chronic obstructive pulmonary disease, unspecified; K21.9 Gastro-esophageal reflux disease without esophagitis; F32.9 Major depressive disorder, single episode, unspecified; E66.01 Morbid (severe) obesity due to excess calories; Z96.653 Presence of artificial knee joint, bilateral; Z88.5 Allergy status to narcotic agent

== ENCOUNTER → 2018-04-08 | Outpatient (CLI) | payer OTHER, BC ==
[~2018-04-08] MED LIST changes: +KEFLEX500 M1 PO
== END ==
LOC: CAT 06:42
DX: J44.9 Chronic obstructive pulmonary disease, unspecified (principal); I25.10 Atherosclerotic heart disease of native coronary artery without angina pectoris; R91.1 Solitary pulmonary nodule; R91.8 Other nonspecific abnormal finding of lung field

== ENCOUNTER → 2018-10-19 | Outpatient (CLI) | payer OTHER, BC ==
[~2018-10-19] VITALS: Ht 157.5 cm; Wt 75.6 kg
[~2018-10-19] MED LIST changes: +LIORESAL 10 MG10 MG PO; +METOPROLOL SUCC50 MG PO; +SYNTHROID137 MC1 PO
[2018-10-19 10:03] VITALS: BP 151/80
== END | disposition home or self-care (01) ==
LOC: PAIN 09:21
DX: M54.16 Radiculopathy, lumbar region (principal); E66.01 Morbid (severe) obesity due to excess calories; J44.9 Chronic obstructive pulmonary disease, unspecified; I10 Essential (primary) hypertension; Z68.41 Body mass index [BMI] 40.0-44.9, adult; Z88.8 Allergy status to other drugs, medicaments and biological substances; Z79.899 Other long term (current) drug therapy; Z87.891 Personal history of nicotine dependence

== ENCOUNTER → 2019-05-29 | Outpatient (CLI) | payer OTHER, BC | LOC: CAT 10:10 | DX: R91.1 Solitary pulmonary nodule (principal); J84.9 Interstitial pulmonary disease, unspecified; E04.1 Nontoxic single thyroid nodule; J98.4 Other disorders of lung ==